=== PATIENT | male | born 1985 | race Caucasian/White ===

== ENCOUNTER → 2018-06-24 | Outpatient (CLI) | payer OTHER ==
[~2018-06-24] MED LIST: 0.9 % SODIUM CHLORIDE 10 ML DISP.SYRIN. ID ONE; GADOBUTROL 7.5 MMOL/7.5 ML VIAL INT ART ONE; IOHEXOL 300 MG/ML 50 ML VIAL. INT ART ONE; LIDOCAINE 1% Multi-Dose 20 ML VIAL. ID ONE
--- NOTE | 2018-06-24 12:45 | KCIC ---
MRI left shoulder arthrogram Clinical indications: Chronic left shoulder pain with popping and grinding. TECHNIQUE: After intra-articular injection of gadolinium, post arthrogram MRI sequences of the left shoulder were performed in all 3 planes. FINDINGS: No extravasation of contrast material into the rotator cuff or the subdeltoid/subacromial bursa is seen. Therefore, no partial articular surface tear or complete tear of the rotator cuff is seen. No subacromial or subdeltoid bursitis is seen. No muscle atrophy is evident. Subscapularis tendon is intact. The tendon of the long head of the biceps is intact. There is a SLAP lesion of the superior aspect of the glenoid labrum including the biceps anchor and extends slightly posterior to it. The SLAP lesion extends into the anterior glenoid labrum and extends all the way inferiorly. There is associated paralabral ganglion cyst seen involving the anterior superior aspect of the glenoid labrum. This measures 13 mm in greatest dimension. No spinoglenoid notch ganglion cyst is seen. There is chronic cystic and/or erosive change of the posterior aspect of the humeral head secondary to chronic acromial humeral space impingement. 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 Type III acromial process is seen. These findings may impinge the acromial humeral space. There is mild bone marrow edema around the AC joint due to the osteoarthritis. No other marrow infiltrative process or fracture is seen. The glenohumeral joint is otherwise unremarkable. No loose body is evident. IMPRESSION: SLAP lesion involving the superior and anterior labrum. There is a paralabral ganglion cyst involving the anterior superior aspect of the glenoid labrum. Impingement of the acromial humeral space. However, no significant edema of the rotator cuff is seen and no partial articular surface tear or complete tear of the rotator cuff is seen. Electronically signed by: Lobito Rabago MD (06/24/2018 12:40 PM) [id number]
--- NOTE | 2018-06-24 12:50 | KCIC ---
Left shoulder injection using fluoroscopic guidance, prior to MRI. Indication: Chronic left shoulder pain. Technique: The procedure was explained to the patient as were potential risks. All questions were answered. Informed written consent was obtained. A timeout was performed which confirmed the name of the patient and the date of and the type of procedure and the side of the procedure. Allergies to medication and contrast reviewed. An appropriate skin nick was made on the anterior aspect of the left shoulder using fluoroscopic guidance. The left shoulder was prepped and draped in the usual sterile manner. Following administration of 3 cc of 1% lidocaine for local anesthetic, a 22-gauge needle was advanced into the left glenohumeral joint from an anterior approach. Following negative aspiration, 20 cc of a solution of 5cc Omnipaque 300 contrast, 5 cc 1% lidocaine, 10 cc normal saline, and 0. 1 cc gadolinium was injected intra-articularly under fluoroscopic observation without difficulty. The contrast confirmed intra-articular position of the needle. 2 fluoroscopic spot views were taken. The needle was removed. There was good hemostasis at the injection site. The patient left in stable condition without immediate complication. The patient was given postprocedural instructions, and instructed to contact us or the ER if there are any complications. Total fluoroscopic time: 16 seconds. Total fluoroscopic spot views: 2. No apparent fluoroscopic abnormality is identified.. Impression: Successful left shoulder joint injection. MRI to follow. Electronically signed by: Lobito Rabago MD (06/24/2018 12:45 PM) [id number]
== END | disposition home or self-care (01) ==
LOC: KCIC 10:05
PROVIDERS: ATTEND Orthopaedic Surgery Sports Medicine
DX: S43.432A Superior glenoid labrum lesion of left shoulder, initial encounter (principal); M67.412 Ganglion, left shoulder; M19.012 Primary osteoarthritis, left shoulder; X58.XXXA Exposure to other specified factors, initial encounter; Y93.89 Activity, other specified; Y92.89 Other specified places as the place of occurrence of the external cause; Y99.8 Other external cause status
CPT/HCPCS: 73040; 73222; A9585; Q9967